=== PATIENT | female | born 1970 | race Caucasian/White ===

== ENCOUNTER → 2024-08-13 | Outpatient (CLI) | payer OTHER, SELFPAY ==
[2024-08-13 08:16] LABS: Collection Type, Urine Clean Catch
[2024-08-13 08:50] LABS: Basophils # (Auto) 0.1 Thou/mm3 (0.0-0.2); Basophils % (Auto) 1 % (0-2.5); Eosinophils # (Auto) 0.1 Thou/mm3 (0.0-0.5); Eosinophils % (Auto) 2 % (0-10); Hematocrit 42.5 % (36.0-46.0); Hemoglobin 14.6 g/dL (12.0-16.0); Immature Granulocytes % (Auto) 0 % (0-0); Immature Granulocytes Auto 0.02 Thou/mm3 (0.00-0.00); Lymphocytes # (Auto) 2.1 Thou/mm3 (1.0-4.8); Lymphocytes % (Auto) 30 % (10-50); Mean Corpuscular HGB Conc 34.4 g/dl (31.0-37.0); Mean Corpuscular Hemoglobin 31.1 pg (25.0-35.0); Mean Corpuscular Volume 91 fL (80-100); Monocytes # (Auto) 0.6 Thou/mm3 (0.0-0.8); Monocytes % (Auto) 8 % (0-12); Neutrophils # (Auto) 4.1 Thou/mm3 (1.8-7.7); Neutrophils % (Auto) 59 % (37-80); Nucleated Red Blood Cell % 0 /100 WBC (0); Platelet Count 265 Thou/mm3 (140-440); RDW Standard Deviation 41.6 fL (36.4-46.3); Red Blood Count 4.69 Miln/mm3 (4.00-5.20); White Blood Count 6.9 Thou/mm3 (3.6-11.0)
[2024-08-13 08:58] LABS: Glucose Estimated Average 100 mg/dL (80-131); Hemoglobin A1C 5.1 % Hgb (4.8-6.0)
[2024-08-13 09:01] LABS: Bacteria,Urine 1+; Bilirubin,Urine Negative (Negative); Blood,Urine Negative (Negative); Color,Urine Yellow (Lt Yel-Yel); Glucose, Urine Negative (Negative); Ketones,Urine Negative (Negative); Leukocyte Esterase,Urine Positive (Negative); Nitrite,Urine Negative (Negative); PH,Urine 5.5 (5.0-7.0); Protein,Urine Negative (Neg - Trace); RBC,Urine 3 /hpf (0-3); Specific Gravity,Urine 1.018 (1.001-1.035); Squamous Epithelial Cell,Urine 19 /hpf (0-5); Urobilinogen,Urine Negative mg/dL (0.0-1.0); WBC,Urine 5 /hpf (0-5)
[2024-08-13 09:13] LABS: Clarity,Urine Hazy (Clear/Hazy)
[2024-08-13 09:26] LABS: Alanine Aminotransferase 35 U/L (10-49); Albumin, Serum 4.6 gm/dL (3.5-5.0); Albumin/Globulin Ratio 1.9 (1.2-2.2); Alkaline Phosphatase 81 U/L (46-116); Anion Gap 9 (7-16); Aspartate Amino Transferase 23 U/L (0-34); BUN/Creatinine Ratio 16 Ratio (12-20); Bilirubin,Total 0.6 mg/dL (0.3-1.2); Blood Urea Nitrogen 13 mg/dL (9-23); Calcium 9.7 mg/dL (8.3-10.6); Calcium (Corrected) 9.7 mg/dL (8.5-10.1); Carbon Dioxide 26.2 mMol/L (20.0-31.0); Cardiac Risk Estimate 4.6 RATIO (3.7-5.6); Chloride 104 mMol/L (98-107); Cholesterol 185 mg/dL (132-200); Creatinine (Component) 0.8 mg/dL (0.6-1.3); Globulin 2.4 gm/dL (2.3-3.5); Glucose 97 mg/dL (74-106); HDL Cholesterol 40 mg/dL (40-60); LDL Cholesterol,Calculated 95 mg/dL (0-130); Osmolality,Calculated 277 (275-295); Potassium 4.3 mMol/L (3.4-5.1); Sodium 139 mMol/L (136-145); Thyroid Stimulating Hormone 2.68 uIU/mL (0.55-4.78); Triglycerides 250 mg/dL (30-150); eGFR > 60 See Note
== END | disposition home or self-care (01) ==
PROVIDERS: PCP Internal Medicine; Referring Provider Internal Medicine; Visit Provider Internal Medicine
DX: Z00.00 Encounter for general adult medical examination without abnormal findings (principal); I10 Essential (primary) hypertension; E78.5 Hyperlipidemia, unspecified
CPT/HCPCS: 36415; 80053; 80061; 81001; 83036; 84443; 85025

== ENCOUNTER 2024-08-27 07:30 | Day surgery (SDC) | payer OTHER, SELFPAY ==
[2024-08-26 12:39] VITALS: BMI 40.7
[2024-08-27] VITALS (10 sets, daily range): BP systolic 112–158; BP diastolic 69–130; PULSE 63–90; RESP 12–24; TEMP 36.3–36.7; O2SAT 95–100; BMI 40.8
[2024-08-27] MEDS: DiphenhydrAMINE INJ 50 MG/ML VIAL 25 MG IV (09:28)
[2024-08-27] MEDS: fentaNYL CIT INJ 50 mCg/ML AMP 2ML (ASD USE ONLY) IV (09:32)
[2024-08-27] MEDS: MIDAZOLAM INJ 1 MG/ML VIAL 2 ML (ASD USE ONLY) 2 MG IV (09:35)
[2024-08-27] MEDS: MEPERIDINE INJ 25 MG/ML VIAL (ASD USE ONLY) IV (09:35)
--- NOTE | 2024-08-27 09:53 | SUR.PHASEII ---
PATIENT INTO RECOVERY WITH NO ACUTE DISTRESS NOTED, V/S STABLE, PATIENT DENIES PAIN AND NAUSEA AT THIS TIME, PATIENT REPOSITIONED FOR COMFORT, WARM BLANKET PROVIDED. REPORT RECEIVED FROM JANNETH ROE.
== END 2024-08-27 10:41 | disposition home or self-care (01) ==
PROVIDERS: PCP Internal Medicine; Referring Provider Specialist; Visit Provider Specialist
PROC: 0DBE8ZX Excision of Large Intestine, Via Natural or Artificial Opening Endoscopic, Diagnostic (ICD-10-PCS; CPT 45380; principal; 2024-08-27 14:15)
DX: K62.1 Rectal polyp (principal); K64.9 Unspecified hemorrhoids; K57.31 Diverticulosis of large intestine without perforation or abscess with bleeding
CPT/HCPCS: 45380; 45385; 81025; A4649; J1200; J2175; J2250; J3010

== ENCOUNTER → 2025-01-10 | Outpatient (CLI) | payer MEDICAID, SELFPAY ==
--- NOTE | 2025-01-10 | XR_ITS ---
Examination: Bilateral hips, AP pelvis, 5 views Technique: AP, lateral views both hips, AP pelvis, 5 views Exam date and time: January 10, 2025 1116 hours INDICATIONS: Bilateral hip pain 30 years. FINDINGS: Moderate right hip osteoarthritis Mild left hip osteoarthritis No right or left hip fracture dislocation Bones of the pelvis intact IMPRESSION: Moderate right hip osteoarthritis Mild left hip osteoarthritis
--- NOTE | 2025-01-10 | XR_ITS ---
Examination: Lumbar spine 3 views TECHNIQUE: AP lateral, lateral lower lumbar spine 3 views Exam date time: January 10, 2025 1149 hours INDICATION: Lower back pain 30 years. FINDINGS: Lumbar levoscoliosis 15 degrees Surgical clips in the pelvis Adequate alignment lumbar vertebral bodies Moderate to advanced disc narrowing L4-L5, L5-S1 No lumbar fracture IMPRESSION: Moderate to advanced degenerative disc disease L4-L5, L5-S1
== END | disposition home or self-care (01) ==
LOC: CDIM 10:45
PROVIDERS: PCP Family Medicine; Referring Provider Family Medicine; Visit Provider Family Medicine
DX: M51.369 Other intervertebral disc degeneration, lumbar region without mention of lumbar back pain or lower extremity pain (principal); M51.379 Other intervertebral disc degeneration, lumbosacral region without mention of lumbar back pain or lower extremity pain; M16.0 Bilateral primary osteoarthritis of hip
CPT/HCPCS: 72100; 73523

== ENCOUNTER → 2025-01-26 | Outpatient (CLI) | payer MEDICAID, SELFPAY ==
--- NOTE | 2025-01-26 08:45 | XR_ITS ---
Examination: Screening digital mammography, bilateral Computer aided detection 3-D breast Tomosynthesis, bilateral Date and time of exam: January 26, 2025 0838 hours Comparison October 14, 2023 Indication: Screening Technique: Nonmagnified MLO, CC views of the breasts to been obtained, reconstructed from 3-D Tomosynthesis images. R2 computer aided detection program utilized for evaluation of suspicious masses and/or abnormal calcifications. 3-D Tomosynthesis images obtained. Findings: Scattered areas of fibroid rather density. Benign calcifications. No interval suspicious masses Impression: BI-RADS category II: Benign Findings. Recommend 1 year follow-up mammogram.
== END | disposition home or self-care (01) ==
LOC: CDIM 08:12
PROVIDERS: Referring Provider Family Medicine; Visit Provider Family Medicine
DX: Z12.31 Encounter for screening mammogram for malignant neoplasm of breast (principal); R92.323 Mammographic fibroglandular density, bilateral breasts; R92.1 Mammographic calcification found on diagnostic imaging of breast
CPT/HCPCS: 77063; 77067

== ENCOUNTER 2025-03-02 12:44 | Outpatient (RCR) | payer MEDICAID, SELFPAY ==
--- NOTE | 2025-03-02 13:20 | PTNOTE_ITS ---
PT OP Initial Eval Patient Information Outpatient Physical Therapy Treatment Date: 03/02/25 Visit Reasons: bilateral hip pain Medical Diagnosis: M16.0 Treatment Dx #1: B hip pain Treatment Dx #2: LBP Start of Care: 03/02/25 Date of Onset: 20 yrs ago Smoking Status Smoking Status: Never smoker Initial Assessment Subjective: Pt is 54 yr old female who reports long Hx of B hip pain and LBP. Increased pain with bending, lifting and twisting. Pt has pain with laying supine, prolonged sitting and walking. PMH: HTN, C-sections x3 Imaging: Xray of B hips: Moderate right hip osteoarthritis, Mild left hip osteoarthritis Pt goal: less pain Objective: B hip AROM: Flexion: 90 deg Abduction: R: 30 deg limited by pain, L: 35 deg SLR: 40 deg SLR: Positive R LBP and R LE pain Assessment: Pt presents with B hip pain and LBP with positive SLR testing. Pt requires ski lled therapy to meet goals and has fair rehab potential. 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 Ind with HEP 2. Improved hip abduction to 40 deg B 3. Pt will ambulate x community distances with <=3/10 B hip pain 4. Improved sitting tolerance x60 mins Treatment Plan ? 1. Manual therapy ? 2. Therex ? 3. Modalities as indicated, moist heat, ice, estim Frequency and Duration: 1-2x a week for 12 visits plus evaluation Certification Dates: 03/02/25 to 05/30/25 Procedure Charges OP PT Eval Mod Complex 30 minutes: Yes
== END 2025-03-05 23:59 | disposition home or self-care (01) ==
LOC: CPTX 12:44
PROVIDERS: PCP Family Medicine; Referring Provider Family Medicine; Visit Provider Family Medicine
DX: M25.552 Pain in left hip (principal); M25.551 Pain in right hip; M16.0 Bilateral primary osteoarthritis of hip; M54.50 Low back pain, unspecified; I10 Essential (primary) hypertension
CPT/HCPCS: 97162

== ENCOUNTER → 2025-03-14 | Outpatient (CLI) | payer MEDICAID, SELFPAY ==
--- NOTE | 2025-03-14 14:30 | XR_ITS ---
Examination: CT chest, without intravenous contrast. Sagittal and coronal 2-D reconstructions. Exam date and time: March 1543 hours INDICATIONS: Smoking history 40 years CTDI:vol (mGy) 19.6 DLP: (mGycm) 821 Technique: Multiple 3.0 mm axial sections of the chest to been obtained. Bone and lung density settings are obtained. Sagittal and coronal 2-D reconstructions have been obtained. Low dose protocols were performed. One or more of the following dose reduction techniques were used; automated exposure control, adjustment of the mA and/or KV according to patient size, use of iterative reconstruction technique. Findings: No focal liver or splenic lesion No paratracheal tracheobronchial or bronchopulmonary adenopathy 3 mm pulmonary nodule right upper lobe image 38 10 mm calcified granuloma right lower lobe No pneumonia or pulmonary edema No visualized liver or splenic lesion Contracted gallbladder No pancreatic mass No hydronephrosis Moderate osteopenia IMPRESSION: 3 mm noncalcified pulmonary nodule right upper lobe, with this study as baseline recommend continued 6 month follow-up CT chest without contrast
== END | disposition home or self-care (01) ==
LOC: CCTX 14:13
PROVIDERS: PCP Family Medicine; Referring Provider Family Medicine; Visit Provider Family Medicine
DX: Z12.2 Encounter for screening for malignant neoplasm of respiratory organs (principal); R91.1 Solitary pulmonary nodule
CPT/HCPCS: 71271

== ENCOUNTER 2025-03-24 13:30 | Outpatient (RCR) | payer MEDICAID, SELFPAY ==
--- NOTE | 2025-03-16 14:18 | PT.ODAYNRPT ---
PT Outpatient Daily Note OP Daily Note Outpatient Physical Therapy Treatment Date: 03/16/25 Visit Reasons: BILATERAL HIP PAIN Subjective: LBP that runs down the L posterior LE to the heel. She stoop bends always and doesn't bend knees to reach the floor Objective: See F/S for therex MT: STM L/S x7' with flexbar around L5-S1 Assessment: The LB and hip pain and L LE pain is consistent with bulging lumbar disk(s) Plan: Continue per POC Length of Time (minutes) of Treatment: 30 Minutes Procedure Charges Therapeutic Exercise 30 minutes: Yes
--- NOTE | 2025-03-24 15:35 | PT.ODS1RPT ---
PT OP Progress/Discharge Note Date of Service: 03/24/25 Progress Note/DC Note Progress Note/Discharge Note: DC Note Patient Information Visit Reasons: BILATERAL HIP PAIN Service Continue Service or Discharge: Discharge Discharge Date: 03/24/25 Status Subjective: LBP that runs down the L posterior LE to the heel. It's hard to get comfortable to sleep. She stoop bends always and doesn't bend knees to reach the floor Objective: See F/S for therex MT: STM L/S x7' with flexbar around L5-S1 B hip AROM: Abduction: 30 deg, L: 35 deg SLR: 40 deg with pain SLR: positive on L Assessment: Pt has attended the evaluation and 2 Rx sessions with increasing LBP and B hip pain L>R consistent with lumbar DDD and radiculopathy into the LE's. Pt is not making progress with goals and not benefitting from therapy interventions abut she may benefit from further diagnostic imaging of the L/S. Plan: D/C with HEP Procedure Charges Therapeutic Exercise 30 minutes: Yes
== END 2025-04-04 23:59 | disposition home or self-care (01) ==
LOC: CPTX 13:30
PROVIDERS: PCP Family Medicine; Referring Provider Family Medicine; Visit Provider Family Medicine
DX: M25.552 Pain in left hip (principal); M25.551 Pain in right hip; M54.50 Low back pain, unspecified; M16.0 Bilateral primary osteoarthritis of hip; I10 Essential (primary) hypertension
CPT/HCPCS: 97110

== ENCOUNTER 2025-05-12 09:55 | Day surgery (SDC) | payer MEDICAID, SELFPAY ==
--- NOTE | 2025-05-10 10:37 | EKG_ITS ---
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
[2025-05-10 11:16] VITALS: BMI 41.8
[2025-05-10 13:10] LABS: Basophils # (Auto) 0.1 Thou/mm3 (0.0-0.2); Basophils % (Auto) 1 % (0-2.5); Eosinophils # (Auto) 0.1 Thou/mm3 (0.0-0.5); Eosinophils % (Auto) 1 % (0-10); Hematocrit 45.0 % (36.0-46.0); Hemoglobin 14.9 g/dL (12.0-16.0); Immature Granulocytes Auto 0.01 Thou/mm3 (0.00-0.00); Lymphocytes # (Auto) 2.2 Thou/mm3 (1.0-4.8); Lymphocytes % (Auto) 33 % (10-50); Mean Corpuscular HGB Conc 33.1 g/dl (31.0-37.0); Mean Corpuscular Hemoglobin 30.7 pg (25.0-35.0); Mean Corpuscular Volume 93 fL (80-100); Monocytes # (Auto) 0.8 Thou/mm3 (0.0-0.8); Monocytes % (Auto) 12 % (0-12); Neutrophils # (Auto) 3.5 Thou/mm3 (1.8-7.7); Neutrophils % (Auto) 53 % (37-80); Nucleated Red Blood Cell # 0.00 Thou/mm3 (0.00-0.00); Nucleated Red Blood Cell % 0 /100 WBC (0); Platelet Count 296 Thou/mm3 (140-440); RDW Standard Deviation 44.9 fL (36.4-46.3); Red Blood Count 4.85 Miln/mm3 (4.00-5.20); White Blood Count 6.7 Thou/mm3 (3.6-11.0)
[2025-05-10 13:19] LABS: Alanine Aminotransferase 44 U/L (10-49); Albumin, Serum 4.9 gm/dL (3.5-5.0); Albumin/Globulin Ratio 2.0 (1.2-2.2); Alkaline Phosphatase 76 U/L (46-116); Anion Gap 10 (7-16); Aspartate Amino Transferase 29 U/L (0-34); BUN/Creatinine Ratio 14 Ratio (12-20); Bilirubin,Total 0.6 mg/dL (0.3-1.2); Blood Urea Nitrogen 14 mg/dL (9-23); Calcium 9.9 mg/dL (8.3-10.6); Calcium (Corrected) 9.9 mg/dL (8.5-10.1); Carbon Dioxide 30.5 mMol/L (20.0-31.0); Chloride 100 mMol/L (98-107); Creatinine (Component) 1.0 mg/dL (0.6-1.3); Estimated Creatinine Clearance 86.4 mL/min (>60); Globulin 2.5 gm/dL (2.3-3.5); Glucose 104 mg/dL (74-106); Osmolality,Calculated 279 (275-295); Potassium 4.6 mMol/L (3.4-5.1); Sodium 140 mMol/L (136-145); Total Protein 7.4 gm/dL (5.7-8.2); eGFR > 60 See Note
[2025-05-12] VITALS (9 sets, daily range): BP systolic 101–157; BP diastolic 59–100; PULSE 64–98; RESP 10–22; TEMP 36.2–36.6; O2SAT 96–100; BMI 42.3
[2025-05-12] MEDS: RINGERS LACTATED 1000 ML 1,000 ML 20 ML IV (10:37)
--- NOTE | 2025-05-12 12:39 | ESOP_ITS ---
Date of Procedure 05/12/25 Pre Op Diagnosis Symptomatic cholelithiasis Post Op Diagnosis Cholelithiasis with cholecystitis Procedure Laparoscopic cholecystectomy Findings Mildly distended gallbladder with gallstones and chronic cholecystitis Procedure Description Patient was brought into the operating room in supine position. After adminis tration of general endotracheal anesthesia abdomen was prepped and draped in standard surgical manner. A Veress needle was inserted through the umbilicus and pneumoperitoneum was obtained up to 15 mmHg. The Veress needle was then removed, a 5 mm supraumbilical incision was made and the 5mm trocar was inserted. Laparoscopic camera was placed. Under direct visualization a laparoscopic camera a 10 mm trocar was placed in subxiphoid and two 5 mm trocars placed in right upper quadrant. The gallbladder was identified and was noted to be mildly distended with gallstones and chronic cholecystitis. It was retracted cephalad and laterally. Dissection started near the infundibulum of gallbladder where cystic duct and gallbladder junction clearly identified. The cystic duct was circumferentially dissected off the peritoneum and surrounding inflammatory tissue. The critical view of safety was clearly demonstrated. Cystic duct was then divided between 2 endoclips proximally and one distally. The cystic artery was similarly dissected and divided. The gallbladder was then from the liver bed using electrocautery. The gallbladder was then placed inside an Endo Catch and removed from the abdomen utilizing subxiphoid trocar site. The area was copiously and thoroughly washed and irrigated, all the fluid was suctioned and the suction fluid returned clear. Hemostasis achieved using electrocautery. Endoclips noted be in place and intact without any bleeding or any leakage. Hemostasis was adequate and satisfactory. The subxiphoid trocar sites fascial defect was closed with 0 Vicryl using Endo Closure device. Instruments and trocars removed, pneumoperitoneum was evacuated and the incisions closed with 4-0 Monocryl in subcuticular fashion. Instrument needle and sponge counts were all reported to be correct X2. Patient tolerated the procedure well, was extubated, breathing spontaneously and without difficulty and was transferred to postanesthesia care in stable condition. Anesthesia GETA and local Pathology / specimen Other (Gallbladder and contents) Estimated Blood Loss 10 Condition Stable Disposition PACU Surgeon Debi Mcgarry MD Surgical Staff Operation Date: 05/12/25 12:45 Case Staff Anesthesiologist: Silvano Simeon RN First Assistant: Libia Barton
--- NOTE | 2025-05-12 12:44 | SUR.PHASEI ---
pt arrived to PACU via gurney with oral airway present, dressing to abdomen clean, dry, and intact with dermabond x4 ports, report from Jaky ROE and Dr Simeon
--- NOTE | 2025-05-12 12:48 | SUR.PHASEI ---
Report to Jammie RN
--- NOTE | 2025-05-12 13:16 | SUR.PHASEI ---
1248: Assumed care. Pt obtunded. Oral airway in place. Resp even, unlabored. VS stable. Surgical sites x4 to abdomen secured with dermabond. No dressings. Areas dry, clean, intact with no swelling, discoloration. 1300: Oral airway dc'd. Resp even, unlabored. 1310: Pt resting with no complaints voiced. Resp even, unlabored. VS stable. Surgical sites remain intact with no swelling, discoloration. Denies pain.
--- NOTE | 2025-05-12 13:36 | SUR.PHASEII ---
1320: Pt more awake, alert. Resp even, unlabored. VS stable. Surgical sites remain dry, clean, intact with no swelling, discoloration. Denies pain. 1325: Pt sitting up tolerating po fluids with no difficulty swallowing and no n/v.
--- NOTE | 2025-05-12 14:20 | SUR.PHASEII ---
1400: Pt fully awake, oriented x3. VS stable. Surgical sites to abdomen remain dry, intact with no swelling, discoloration. Pt states she has some pain with movement but tolerable. Pt dressing. at bedside. Pt assisted to transport chair. Ambulation steady. 1410: Pt and stated understanding of discharge instructions. Pt also instructed to clam picker her prescriptions at [facility]. Pt discharged from Pacu in stable condition.
== END 2025-05-12 14:10 | disposition home or self-care (01) ==
PROVIDERS: PCP Family Medicine; Referring Provider Surgery; Visit Provider Surgery
PROC: 0FT44ZZ Resection of Gallbladder, Percutaneous Endoscopic Approach (ICD-10-PCS; CPT 47562; principal; 2025-05-12 12:30)
DX: K80.10 Calculus of gallbladder with chronic cholecystitis without obstruction (principal); Z01.810 Encounter for preprocedural cardiovascular examination; I45.10 Unspecified right bundle-branch block
CPT/HCPCS: 47562; 36415; 80053; 85025; 93005; A4217; A4649; J0131; J0694; J1100; J1885; J2250; J2405; J2704; J3010; J3490; J7120

== ENCOUNTER → 2025-06-27 | Outpatient (CLI) | payer MEDICAID, SELFPAY ==
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
== END | disposition home or self-care (01) ==
LOC: SMRI 07:03
PROVIDERS: PCP Family Medicine; Referring Provider Family Medicine; Visit Provider Family Medicine
DX: M51.360 Other intervertebral disc degeneration, lumbar region with discogenic back pain only (principal)
CPT/HCPCS: 72148

== ENCOUNTER → 2025-09-22 | Outpatient (CLI) | payer MEDICAID, SELFPAY ==
--- NOTE | 2025-09-22 08:00 | XR_ITS ---
Examination: CT lung low dose screening, without contrast. 2-D sagittal reconstructions. 2-D coronal reconstructions. 3-D reconstructions. Date and time of exam: September 22, 2025, 0733 hours INDICATION: Solitary pulmonary nodule diagnosis 6 months, 3 mm pulmonary nodule right upper lobe on CT chest March 14, 2025 CTDI: vol (mGy): 21.9 DLP: (mGycm): 841 Technique: Multiple 1.25 mm axial sections of the lung low dose screening have been obtained. 2-D sagittal and coronal reconstructions have been obtained. 3-D reconstructions have been obtained. Low dose protocols were performed. One or more of the following dose reduction techniques were used; automated exposure control, adjustment of the mA and/or KV according to patient size, use of iterative reconstruction technique. Findings: No thoracic aortic aneurysm dilatation Pulmonary artery segments are not enlarged Calcifications in the right hilar region No pericardial effusion Stable 3 mm pulmonary nodule right upper lobe No new noncalcified pulmonary nodules No pneumonia or pulmonary edema No visualized liver lesion Splenic calcifications Absent gallbladder No pancreatic mass IMPRESSION: Stable 3 mm pulmonary nodule right upper lobe No new pulmonary nodules
== END | disposition home or self-care (01) ==
LOC: CCTX 07:25
PROVIDERS: PCP Family Medicine; Referring Provider Family Medicine; Visit Provider Family Medicine
DX: R91.1 Solitary pulmonary nodule (principal)
CPT/HCPCS: 71271